=== PATIENT | female | born 1990 | race Asian ===

== ENCOUNTER 2020-10-01 10:16 | Emergency (ER) | payer OTHER ==
[~2020-10-01] VITALS: Ht 149.9 cm; Wt 72.6 kg
[2020-10-01 10:56] LABS: ABSOLUTE NEUTROPHILS 4.7 thou/uL (1.4-8.2); BASOPHILS 0.5 % (0.0-2.0); EOSINOPHILS 0.9 % (0.0-3.0); HEMATOCRIT 39.1 % (37.0-47.0); HEMOGLOBIN 13.1 gm/dL (12.0-15.0); MCH 31.2 pg (26.0-34.0); MCHC 33.6 g/dL (28.0-37.0); MCV 93.1 fL (80.0-100.0); PLATELET COUNT 260 thou/uL (150-400); POLYS 65.6 % (36.0-66.0); RDW 13.9 % (10.5-14.5); WBC 7.1 thou/uL (4.0-11.0)
[2020-10-01 11:10] LABS: CALCIUM 9.4 mg/dL (8.5-10.1); CREATININE 0.8 mg/dL (0.6-1.0); POTASSIUM 3.9 mmol/L (3.5-5.1)
[2020-10-01 11:16] LABS: ALBUMIN 3.9 g/dL (3.4-5.0); TOTAL BILIRUBIN 0.4 mg/dL (0.2-1.0); TOTAL PROTEIN 7.5 g/dL (6.4-8.2)
[2020-10-01] MEDS ORDERED: CYCLOBENZAPRINE5 MG PO (13:22)
[2020-10-01] MEDS ORDERED: MOBIC7.5 MG PO (13:22)
[2020-10-01 14:07] VITALS: BP 92/51
== END 2020-10-01 14:05 | disposition home or self-care (01) ==
LOC: ER 10:16
PROVIDERS: Physician Assistant
DX: S39.012A Strain of muscle, fascia and tendon of lower back, initial encounter (principal); S16.1XXA Strain of muscle, fascia and tendon at neck level, initial encounter; M79.604 Pain in right leg; F17.210 Nicotine dependence, cigarettes, uncomplicated; V49.9XXA Car occupant (driver) (passenger) injured in unspecified traffic accident, initial encounter; Y93.89 Activity, other specified; Y92.89 Other specified places as the place of occurrence of the external cause; Y99.8 Other external cause status